=== PATIENT | male | born 1960 | race Caucasian/White ===

== ENCOUNTER 2023-10-04 19:05 | Emergency (ER) | payer OTHER, SELFPAY ==
[2023-10-04 19:10] VITALS: BP 142/93; PULSE 77; RESP 16; TEMP 36.8; O2SAT 96; BMI 27.6
--- NOTE | 2023-10-04 19:19 | DI.RAD.S_ITS ---
PROCEDURE: XR CHEST 2V INDICATIONS: cough 2 weeks TECHNIQUE: 2 views of the chest were acquired. COMPARISON: [facility], , CHEST 2 VIEW, 05/16/2008, 14:20. FINDINGS: Surgical changes and devices: None. Lungs and pleura: Lungs are clear. No pleural effusions or pneumothorax. Mediastinum: Mediastinal contours are normal. Heart size is normal. Bones and chest wall: No suspicious bony abnormalities. Soft tissues appear unremarkable. IMPRESSION: No acute cardiopulmonary abnormality is seen. Dictated by: Luis Angel Blevins M.D. on 10/04/2023 at 18:49 Approved by: Luis Angel Blevins M.D. on 10/04/2023 at 18:50
[2023-10-04 20:08] LABS: Influenza A - CEPHEID Flu A NEGATIVE (NEGATIVE); Influenza B - CEPHEID Flu B NEGATIVE (NEGATIVE); Respiratory Syncytial Virus Negative (Negative)
[2023-10-04 20:18] LABS: COVID-19 CEPHEID 4-PLEX PCR Negative (Negative)
--- NOTE | 2023-10-04 21:16 | ED.GENADULT ---
HPI - General Adult General Chief complaint: Upper Respiratory Symptoms Stated complaint: Constant cough t-14 not getting better Time Seen by Provider: 10/04/23 21:15 Source: other Mode of arrival: Ambulatory Limitations: no limitations History of Present Illness HPI narrative: 63-year-old history of GERD, on aspirin daily. Patient has complaint of initially upper respiratory congestion that improved, persistent cough that has been dry but occasional green productive sputum. He denies any increased shortness of breath, no active chest pain, patient has not had any fevers. He has not had any postnasal drainage. He states he has not getting any worse but just has not gotten any better. Symptoms started over 15 days ago. 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 Initially he was around his grandchildren who have had colds. Patient does use tobacco, no recreational drugs. He takes an aspirin daily and Dexilant for GERD. Related Data Home Medications Medication Instructions Recorded Confirmed ASPIRIN CHEW - ##0 12/21/03 (ASPIRIN) OMEPRAZOLE 10 mg PO BID ##0 05/16/08 Previous Rx's Medication Instructions Recorded azithromycin 250 mg tablet See Rx Instructions PO .COMPLEX #6 10/04/23 tabs Allergies Allergy/AdvReac Type Severity Reaction Status Date / Time No Known Drug Allergies Allergy Unverified 12/28/21 09:35 Review of Systems Review of Systems ROS Unobtainable: All systems reviewed & are unremarkable except as noted in HPI and below Patient History Social History Smoking Status: Current some day smoker Smoking Status: Current some day smoker tobacco type: cigarettes alcohol intake frequency: a few times a month Alcohol type: beer Substance Use Type: does not use Exam Narrative Exam Narrative: GEN: well nourished, well appearing male, alert and oriented x 3, patient appears to be in mild distress. HEENT: Atraumatic, pupils are equal round reactive to light, extraocular movements are intact, nares are clear, TMs are clear with no fluid, there is no conjunctival pallor. Throat is clear without any exudates, erythema, tonsillar enlargement or uvular deviation HEART: Regular rate and rhythm without murmur, clicks, rubs. No edema. LUNGS:Lungs clear to auscultation, no wheezes, rales, crackles, chest moves symmetrically, no tachypnea or accessory muscle use, patient does have dry persistent cough. ABD:bowel sounds normal, soft, non-tender, no guarding, rebound, rigidity, no masses noted, no hepatosplenomegaly MSCL: full range of motion, normal gait NEURO:CN 2-12 intact Initial Vital Signs Initial Vital Signs: Vital Signs Temperature 98.2 F 10/04/23 19:10 Pulse Rate 77 10/04/23 19:10 Respiratory Rate 16 10/04/23 19:10 Blood Pressure 142/93 H 10/04/23 19:10 Pulse Oximetry 96 10/04/23 19:10 Oxygen Delivery Method Room Air 10/04/23 19:10 Course Orders Ordered: ED Orders 10/04/23 19:19 Chest [XR chest 2V] Stat 10/04/23 19:26 Covid-19 + FLU A/B + RSV - PCR Stat Vital Signs Vital signs: Vital Signs - 8 hr 10/04/23 22:07 Pulse Rate 68 Respiratory Rate 18 Blood Pressure 155/88 H Pulse Oximetry 96 Oxygen Delivery Method Room Air Medical Decision Making Lab Data Labs: Lab Results 10/04/23 Range/Units 19:26 SARS-CoV-2 (PCR) Negative (Negative) Influenza A (RT-PCR) Flu a negative (NEGATIVE) Influenza B (RT-PCR) Flu b negative (NEGATIVE) RSV (PCR) Negative (Negative) Imaging Data Chest x-ray: Radiologist's Impression: [address] [address] XRay Report Signed Patient: Jeremias Frazier MR#: [id number] : 1960 Acct:[id number] Age/Sex: 63 / M Date of Service: 10/04/23 Loc: ED Accession Number: [id number] Procedure: XR chest 2V Ordering Provider: Fay Parikh D.O. PROCEDURE: XR CHEST 2V INDICATIONS: cough 2 weeks TECHNIQUE: 2 views of the chest were acquired. COMPARISON: [facility], CHEST 2 VIEW, 05/16/2008, 14:20. FINDINGS: Surgical changes and devices: None. Lungs and pleura: Lungs are clear. No pleural effusions or pneumothorax. Mediastinum: Mediastinal contours are normal. Heart size is normal. Bones and chest wall: No suspicious bony abnormalities. Soft tissues appear unremarkable. IMPRESSION: No acute cardiopulmonary abnormality is seen. Dictated by: Luis Angel Blevins M.D. on 10/04/2023 at 18:49 Approved by: Luis Angel Blevins M.D. on 10/04/2023 at 18:50 [facility] Narrative Medical decision making narrative: Chest x-ray shows no acute change. [facility], COVID/influenza/RSV swab is negative. Patient has had 15+ day as if symptoms without resolution. Did likely have a viral initiating illness may have had a secondary illness but with persistent symptoms, green productive sputum patient is felt appropriate to start oral antibiotic based on the timeframe for potential pneumonia versus bronchitis. Discharge Plan Departure Patient Disposition: Home Clinical Impression: Bronchitis Instructions: DI for Acute Bronchitis Activity Restrictions/Additional Instructions: Follow up if your symptoms are not improving over the next week. Your symptoms are likely a viral source but there is a prescription included for antibiotics if your symptoms are persisting. Prescription was sent to [facility] in [place]. Please return for fevers, new chest pain or shortness of breath, lightheadedness or passing out, coughing up blood, new swelling of extremities or other new or concerning changes. Prescriptions: New azithromycin 250 mg tablet See Rx Instructions .ROUTE .COMPLEX Qty: 6 0RF Rx Instructions: For 250 mg dose pack: take 500 mg today (day 1), then 250 mg for 4 days (days 2-5) No Action ASPIRIN CHEW - (ASPIRIN) Qty: 0 OMEPRAZOLE 10 mg PO BID Qty: 0 Referrals: Miscellaneous,Doctor, [Primary Care Provider] - Stand Alone Forms: Patient Portal/API
[2023-10-04 22:07] VITALS: BP 155/88; PULSE 68; RESP 18; O2SAT 96
== END 2023-10-04 22:07 | disposition home or self-care (01) ==
PROVIDERS: Emergency Provider Emergency Medicine
DX: J40 Bronchitis, not specified as acute or chronic (principal); F17.200 Nicotine dependence, unspecified, uncomplicated
CPT/HCPCS: 0241U; 71046; 99281; 99283